=== PATIENT | male | born 1970 | race Caucasian/White ===

== ENCOUNTER 2018-03-15 10:17 | Emergency (ER) | payer MEDICARE, OTHER ==
[2018-03-15 10:24] VITALS: BP 122/79; PULSE 79; RESP 18; TEMP 98.1
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
--- NOTE | 2018-03-15 10:44 | XR ---
EXAMINATION TYPE: XR hand complete LT DATE OF EXAM: 03/15/2018 COMPARISON: None HISTORY: Contusion left hand TECHNIQUE: Three-view left hand FINDINGS: No displaced fractures are evident. Joint spaces are preserved. There is mild soft tissue s welling over the dorsum of hand. IMPRESSION: 1. No acute osseous abnormality. 2. Soft tissue swelling dorsum of hand. 3. Follow-up exams can be performed 7-10 days from acute trauma for continued pain.
== END 2018-03-15 11:25 | disposition home or self-care (01) ==
LOC: EC 10:17
DX: S60.222A Contusion of left hand, initial encounter (principal); F17.200 Nicotine dependence, unspecified, uncomplicated; Z79.891 Long term (current) use of opiate analgesic; Z79.899 Other long term (current) drug therapy; W28.XXXA Contact with powered lawn mower, initial encounter; Y93.89 Activity, other specified
CPT/HCPCS: 99283

== ENCOUNTER → 2019-01-23 | Outpatient (CLI) | payer MEDICARE, OTHER ==
--- NOTE | 2019-01-23 18:13 | CT ---
EXAMINATION TYPE: CT lumbar spine wo/w con DATE OF EXAM: 01/23/2019 COMPARISON: 02/13/2011 HISTORY: 48-year-old male Low back pain radiating into bilateral lower legs. TECHNIQUE: Contiguous axial scanning of the lumbar spine performed without and with IV Contrast, shabbir ent injected with 100 mL of Isovue 300. Coronal/sagittal reconstructions performed. CT DLP: 976.3 mGycm Automated exposure control for dose reduction was used. FINDINGS: Redemonstrated lumbar laminectomy now extending up from L1 down through S1 levels as compared to L2-S 1 back in 2011. There is also been extension of the posterior fusion hardware now from L1 through L5 levels versus L2 -L4 levels back in 2011. Lateral osseous fusion is also demonstrated down to S1, unchanged from 02/13/201111. Grade 1 retrolisthesis at L1-L2 is now fixed. Progressive hypertrophic facet arthropathy at T12-L1 mild bulging disc at this level. Mature interbody ankylosis of L3-L4. There Vertebral body heights are preserved. On the right, changes result in moderate to severe neuroforaminal stenosis at L1-L2, moderate at L2-L 3, L3-L4, and L4-L5. Changes appear overall progressed from 2011. On the left, there is moderate to severe neural foraminal stenosis at L1-L2, mild at L2-L3 and L3-L4, and moderate at L4-L5. This also appears progressed from prior exam. Possible moderate to severe neural foraminal stenosis above the fusion at T12-L1 is noted. IMPRESSION: 1. COMPARED TO 2010, THERE HAS BEEN EXTENSION OF LAMINECTOMY CHANGE NOW FROM L1 THROUGH S1 LEVELS AND POSTERIOR LUMBAR FUSION FROM L1 THROUGH L5. 2. VARIABLE BILATERAL NEUROFORAMINAL STENOSES OUTLINED ABOVE, INCREASED FROM 2011. MODERATE TO SEV ERE ON BOTH SIDES AT L1-L2 AND POSSIBLY MODERATE TO SEVERE ABOVE THE FUSION ON THE LEFT AT T12-L1.
== END | disposition home or self-care (01) ==
LOC: RADCTMAIN 13:58
PROVIDERS: ATTEND Psychiatry & Neurology Neurology
DX: M48.061 Spinal stenosis, lumbar region without neurogenic claudication (principal); Z98.1 Arthrodesis status
CPT/HCPCS: 72133; Q9967

== ENCOUNTER 2019-11-06 22:33 | Emergency (ER) | payer MEDICARE, OTHER ==
[2019-11-06 22:39] VITALS: BP 151/70; PULSE 85; RESP 18; TEMP 98.1
[2019-11-06] MEDS ORDERED: predniSONE 20 MG TAB PO STA (23:41)
--- NOTE | 2019-11-06 23:42 | XR ---
EXAMINATION TYPE: XR chest 1V portable DATE OF EXAM: 11/06/2019 COMPARISON: 06/11/2011 HISTORY: Short of breath TECHNIQUE: Single view FINDINGS: Heart is normal. Lungs are clear of infiltrate. There is no heart failure. There is neural stimulator in the mid thoracic spine. Costophrenic angles are clear. IMPRESSION: No active cardiomegaly disease. No adverse change.
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
== END 2019-11-07 00:29 | disposition home or self-care (01) ==
LOC: EC 22:33
DX: R05 Cough (principal); J02.9 Acute pharyngitis, unspecified; R50.9 Fever, unspecified; R06.2 Wheezing; K21.9 Gastro-esophageal reflux disease without esophagitis; G89.29 Other chronic pain; F17.200 Nicotine dependence, unspecified, uncomplicated; Z88.0 Allergy status to penicillin; Z91.018 Allergy to other foods; Z79.1 Long term (current) use of non-steroidal anti-inflammatories (NSAID); Z79.891 Long term (current) use of opiate analgesic; Z79.899 Other long term (current) drug therapy; Z96.698 Presence of other orthopedic joint implants
CPT/HCPCS: 99285; 87502; 71045; J7512

== ENCOUNTER 2021-03-24 19:36 | Emergency (ER) | payer MEDICARE, OTHER ==
[2021-03-24 20:16] VITALS: TEMP 98.5
[2021-03-24 21:18] VITALS: BP 121/77; PULSE 96; RESP 20
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
[2021-03-24] MEDS ORDERED: SULFAMETH-TMP DS STARTER PACK 2 TAB BTL PO STA (21:37)
[2021-03-24] MEDS ORDERED: CEPHALEXIN 500MG STARTER PACK 4 CAP BTL PO STA (21:37)
== END 2021-03-24 21:46 | disposition home or self-care (01) ==
LOC: EC 19:36
DX: L02.411 Cutaneous abscess of right axilla (principal); L02.413 Cutaneous abscess of right upper limb; J44.9 Chronic obstructive pulmonary disease, unspecified; K21.9 Gastro-esophageal reflux disease without esophagitis; Z87.891 Personal history of nicotine dependence; Z88.0 Allergy status to penicillin; Z91.018 Allergy to other foods; Z79.899 Other long term (current) drug therapy
CPT/HCPCS: 87070; 87205; 99282

== ENCOUNTER → 2024-04-04 | Outpatient (CLI) | payer MEDICARE, OTHER ==
--- NOTE | 2024-05-02 13:12 | XR ---
Patient Don Rabago ID [id number] Age/Gender: 54Y, M Order # N/A [id number] Procedure XR lumbosacral spine min 4V Date 04/04/2024 10:45:00 AM EXAMINATION TYPE: Lumbosacral Spine min 4 Views DATE OF EXAM: 04/04/2024 CLINICAL HISTORY: pain COMPARISON: NONE TECHNIQUE: Frontal, lateral, and oblique images of the lumbar spine are obtained. FINDINGS: L1-L5 laminectomy with fusion and pedicular screws. Postoperative alignment is within norm al limits. There are 5 lumbar type vertebral bodies identified. The lumbar spine shows satisfactory alignment without evidence of acute fracture or dislocation. Vertebral body heights are within normal limits. The overlying soft tissue appears unremarkable. IMPRESSION: L1-L5 laminectomy with fusion and pedicular screws. Postoperative alignment is within normal limits.
== END | disposition home or self-care (01) ==
LOC: RADXRMAIN 10:41
PROVIDERS: ATTEND Family Medicine
DX: M51.9 Unspecified thoracic, thoracolumbar and lumbosacral intervertebral disc disorder (principal); M96.1 Postlaminectomy syndrome, not elsewhere classified
CPT/HCPCS: 72110

== ENCOUNTER → 2024-05-02 | Outpatient (CLI) | payer MEDICARE, OTHER | LOC: CPPFTMAIN 16:37 | PROVIDERS: ATTEND Family Medicine | DX: J44.9 Chronic obstructive pulmonary disease, unspecified | CPT/HCPCS: 94060; 94726; 94729 ==